=== PATIENT | female | born 1960 | race American Indian/Alaskan Native ===

== ENCOUNTER 2017-04-16 11:31 | Outpatient (CLI) | payer OTHER ==
--- NOTE | 2017-04-16 12:59 | Mammography Report ---
RIGHT DIGITAL DIAGNOSTIC MAMMOGRAM : 04/16/17 11:31:00 CLINICAL: Abnormal mammogram. COMPARISON:A recent [facility] screening mammogram FINDINGS: Routine views plus MLO and CC spot compression views were performed. An oval circumscribed 1.8 cm mass at 6 o'clock has been stable mammographically since 2016. No other mass, architectural distortion or suspicious calcifications. Ultrasound of the right breast (including all four quadrants and the retroareolar area) was performed and demonstrated a benign cyst near the areola 1 o'clock measuring 4 mm x 5 mm x 3 mm. A superficial cyst at 9 o'clock at the areola measures 3 mm. A solid heterogeneous hypoechoic mass with a mild lobular contour at 6 o'clock approximately 2 cm from the nipple measures 1.6 x 0.7 x 1.7 cm and correlates with the mammographic mass which has been stable. IMPRESSION: A benign solid right breast mass at 6 o'clock and a few tiny benign cysts. BI-RADS CATEGORY: 2 - - Benign RECOMMENDATION: Routine mammographic screening in one year. ACR BI-RADS MAMMOGRAPHIC CODES: 0 = Needs additional imaging evaluation; 1 = Negative; 2 = Benign; 3 = Probably benign; 4 = Suspicious; 5 = Malignant; 6 = Known biopsy-proven malignancy COMMENT: 1. Dense breast tissue, i.e., adenosis, fibrocystic changes, etc., may obscure an underlying neoplasm. 2. Approximately 10% of cancers are not detected with mammography. 3. A negative mammography report should not delay biopsy if a clinically suspicious mass is present. COMMENT: Patient follow-up letters are generated via our [employer] application.
== END 2017-04-16 11:32 | disposition home or self-care (01) ==
LOC: SPVWC 11:31
PROVIDERS: ATTEND General Practice
DX: N60.01 Solitary cyst of right breast (principal); N63.10 Unspecified lump in the right breast, unspecified quadrant; R92.8 Other abnormal and inconclusive findings on diagnostic imaging of breast

== ENCOUNTER 2017-09-30 04:16 | Emergency (ER) | payer OTHER ==
[2017-09-30] MEDS ORDERED: BENADRYL PO ONE ×2 (04:51→05:17)
[2017-09-30] MEDS ORDERED: PEPCID ONE (04:52)
[2017-09-30] MEDS ORDERED: PEPCID PO ONE (05:18)
--- NOTE | 2017-09-30 07:57 | Emergency Department Report ---
HPI - General Chief Complaint: Allergic Reaction Time Seen by Provider: 09/30/17 07:33 - HPI HPI: This is 57-year-old female who reports that after returning home for a and Thursday she developed hives and itching to her upper torso and arms. She said today she has hives to her face. Denies any difficulty breathing, coughing , wheezing, fever and/or chills. She is not sure of the cause. Tetanus vaccine is up-to-date. She reports red raised areas that are itchy. Denies any pain or any medical problems. Tetanus vaccines up-to-date. Denies any swelling of lips or tongue. Denies a similar incident. Pain is 0-10. Patient says she took [id number] medication but it did not help. She reports itchiness. Very severe. ED Past Medical Hx - Past Medical History Previous Medical History?: No - Surgical History Past Surgical History?: No - Family History Family history: no significant - Social History Smoking Status: Never Smoker Substance Use Type: None - Medications Home Medications: Home Medications Medication Instructions Recorded Confirmed Last Taken Type hydrOXYzine HCL [Atarax] 25 mg PO Q6HR PRN #16 tablet 09/30/17 Unknown Rx methylPREDNISolone [Medrol] 4 mg PO QAM 6 Days #1 tab.ds.pk 09/30/17 Unknown Rx ED Review of Systems ROS: Stated complaint: RASH WITH ITCHING Other details as noted in HPI Constitutional: denies: chills, fever Eyes: denies: eye pain, eye discharge, vision change ENT: denies: ear pain, throat pain, dental pain, congestion Respiratory: denies: cough, shortness of breath, SOB with exertion, SOB at rest , wheezing Cardiovascular: denies: chest pain, palpitations, dyspnea on exertion, edema, syncope Gastrointestinal: denies: nausea, vomiting Musculoskeletal: denies: back pain, joint swelling, arthralgia, myalgia Skin: rash, pruritus. denies: lesions Neurological: denies: headache, weakness, paresthesias Physical Exam - Physical Exam Vital Signs: Vital Signs 09/30/17 05:07 Temperature 98.1 F Pulse Rate 68 Respiratory 18 Rate Blood Pressure 134/87 O2 Sat by Pulse 100 Oximetry General: This is a 57-year-old female in [place]. In no acute distress. Physical Exam: Head: Normocephalic atraumatic. Scalp examination and normal. Nontender to palpate. No abrasion, contusion or hematoma noted. Mouth: Oral mucosa moist, tongue is normal, uvula is midline, no [employer] or drooling , oral airways patent and uvula is midline. Neck: No breathing or stridor. Supple, no tracheal deviation, no lymphadenopathy and full range of motion Ears: Bilateral TMs pearly urias and bilateral EAC normal exam.no mastoid bone tenderness. Nose: Nasal mucosa without any erythema or swelling or drainage. Bilateral frontal and mastoid sinuses nontender to palpate. Nasal septum normal and nontender to palpate Lungs: Clear to auscultation bilaterally, no rhonchi wheezes or rales. No work of breathing CV: S1, S2. Regular rate rhythm negative murmur Eyes: Bilateral pupils equal and reactive to light, bilateral conjunctiva injected with erythema. Bilateral EOM intact and normal accommodation. No Lids are normal. No induration and no sign of cellulitis. Skin: Noted urticarial circular, erythema nontender to palpate, no drainage. Patch-like area to anterior and posterior torso, upper extremities and sparsely scattered facial area. No signs of infection noted Psych: Normal mood and behavior Extremity: No cce. + 2 pulses in all extremities, no neurovascular compromise ED Course Vital Signs 09/30/17 05:07 Temperature 98.1 F Pulse Rate 68 Respiratory 18 Rate Blood Pressure 134/87 O2 Sat by Pulse 100 Oximetry - Reevaluation(s) Reevaluation #1: 09/30/17 08:24 Patient received Benadryl 50 mg by mouth, Pepcid 40 mg by mouth and Solu-Medrol 125 mg IM in the emergency room with no adverse reaction. Further evaluation rash and itching has subsided. ED Medical Decision Making - Medical Decision Making ED course: This is a 57-year-old female here today complaining of any chin and her upper torso and arms that spreading to her face today. She has no respiratory difficulties. She is here to be treated. No resolution with home remedies. Patient was seen by myself and examined and she is in stable condition. She was given Cipro Medrol, Benadryl and Pepcid with positive relief.. I discussed with patient diagnosis and she voiced understanding. Physical finding is normal except for acute rash and itching. The physical exam for details. Patient has no respiratory symptoms or abnormal respiratory findings. A/P I: Hives -patient given Solu-Medrol 125 mg IM and Pepcid 20 mg by mouth which relieved rash and itching and she will be sent home on Medrol Dosepak . He is to follow-up with customer loyalty representative or inpatient services director in 2 days 2: Pruritus-patient given Benadryl 50 mg by mouth which relieved her itching. She will be sent home on Atarax Patient educated on diagnosis, medication, need to follow-up, and skin care and they voiced understanding Vital signs are stable and afebrile and she is nontoxic in appearance.. Discharge home in stable condition to follow up with primary care physician in 2 days and also follow up with customer loyalty representative in 2 days. Patient signs are stable she is afebrile and rash has subsided after medication and observation in the emergency room. She states that she felt better. Prescription for Medrol Dosepak and Atarax. Patient is stable and her itching has been relieved. Patient instructed to return to the emergency room if she has worsening symptoms and she voiced understanding. Critical care attestation.: If time is entered above; I have spent that time in minutes in the direct care of this critically ill patient, excluding procedure time. ED Disposition Clinical Impression: Hives, Pruritus Disposition: [id number] TO HOME OR SELFCARE Is pt being admited?: No Does the pt Need Aspirin: No Condition: Stable Instructions: Urticaria (ED), Itchy Skin (ED) Additional Instructions: Please follow-up with your [facility] care physician tomorrow go to dermatologists or inpatient services director to get skin testing Take Atarax for itching but please do not drive or operate heavy machinery while taking this medication as it can cause drowsiness take Medrol Dosepak as prescribed If you develop, recurrent rash, cough, wheezing, difficulty breathing and swallowing, swelling of tongue and neck and/or stridor please return to the emergency room [facility] otherwise follow-up a year sole dyer and if needed they will refer you to pediatrics dermatologists for allergy skin testing. Prescriptions: hydrOXYzine HCL [Atarax] 25 mg PO Q6HR PRN #16 tablet PRN Reason: Itching methylPREDNISolone [Medrol] 4 mg PO QAM 6 Days #1 tab.ds.pk Referrals: PRIMARY CARE, [Primary Care Provider] - 10/02/17 LIAN SAENZ MD [Staff Physician] - 10/02/17 Forms: Work/School Release Form(ED)
[2017-09-30 08:53] VITALS: BP 111/80
== END 2017-09-30 08:54 | disposition home or self-care (01) ==
LOC: ED 04:16
DX: L50.9 Urticaria, unspecified (principal); L29.9 Pruritus, unspecified
CPT/HCPCS: 96372; 99282; J2930

== ENCOUNTER 2018-05-27 11:17 | Outpatient (CLI) | payer OTHER ==
--- NOTE | 2018-05-27 12:34 | Mammography Report ---
Bilateral mammogram: Compared to 04/16/17 right breast. Left mammogram not available. CAD study utilized. Findings: Predominance it was tissue bilaterally. Benign appearing nodule right breast without interval change. 3 mm nodule 2:00 position left breast. No microcalcifications. Normal axilla. Impression: 3 mm nodule 12:00 position left breast. Comparison with previous studies is recommended. If previous studies are not available spot compression and sonographic examination advised. BI-RADS CATEGORY: 0 = Needs additional imaging evaluation ACR BI-RADS MAMMOGRAPHIC CODES: 0 = Needs additional imaging evaluation; 1 = Negative; 2 = Benign; 3 = Probably benign; 4 = Suspicious; 5 = Malignant; 6 = Known biopsy-proven malignancy COMMENT: 1. Dense breast tissue, i.e., adenosis, fibrocystic changes, etc., may obscure an underlying neoplasm. 2. Approximately 10% of cancers are not detected with mammography. 3. A negative mammography report should not delay biopsy if a clinically suspicious mass is present.
== END 2018-05-27 11:18 | disposition home or self-care (01) ==
LOC: MAMMO 11:17
PROVIDERS: ATTEND General Practice
DX: Z12.31 Encounter for screening mammogram for malignant neoplasm of breast (principal)
CPT/HCPCS: 77067